=== PATIENT | female | born 1980 | race Two or more races ===

== ENCOUNTER 2018-09-14 16:12 | Emergency (ER) | payer MEDICAID ==
[~2018-09-14] VITALS: Ht 149.9 cm; Wt 87.1 kg
[2018-09-14 17:32] LABS: Urine Bacteria FEW /hpf (None Seen); Urine Blood 1+ /uL (Negative); Urine Mucus FEW (None Seen); Urine Specific Gravity 1.018 (1.001-1.035); Urine WBC 36 /hpf (0 - 5)
[2018-09-14 17:58] LABS: Basophils # (auto) 0 uL; Basophils % (auto) 0.1 % (0.0-2.0); Eosinophils # (auto) 0 uL; Hematocrit 40.8 % (36.0-46.0); Hemoglobin 13.9 g/dL (12.2-16.2); Lymphocytes % (auto) 10.8 % (10.0-50.0); Mean Corpuscular Hemoglobin 30.9 pg (28.0-32.0); Mean Corpuscular Hgb Conc. 34.1 g/dL (32.0-36.0); Mean Corpuscular Volume 90.7 fL (80.0-100.0); Monocytes # (auto) 0.5 uL; Monocytes % (auto) 5.8 % (0.0-12.0); Neutrophils # (auto) 7.7 uL; Neutrophils % (auto) 83.3 % (37.0-80.0); Platelet Count (auto) 242 10^3/uL (140-450); Red Blood Cells 4.51 10^6/uL (4.0-5.20); Red Cell Distribution Width 13.7 % (11.8-14.3); White Blood Cell 9.3 10^3/uL (4.4-10.8)
[2018-09-14 18:13] LABS: Albumin 3.6 g/dL (3.4-5.0); Potassium 3.8 mmol/L (3.5-5.1)
[2018-09-14 18:18] LABS: BUN/Creatinine Ratio 10.9; Bilirubin, Total 0.6 mg/dL (0.2-1.0); Total Protein 8.5 g/dL (6.4-8.2)
[2018-09-14] MEDS ORDERED: IBUPROFEN 600 MG TAB PO ONE (19:00)
[2018-09-14] MEDS ORDERED: SODIUM CHLORIDE 0.9% 1,000 ML IV ONE (19:45)
[2018-09-14] MEDS ORDERED: cefTRIAXone 1GM/50ML D5W 50 ML IV ONE (19:45)
[2018-09-14 21:27] VITALS: BP 119/81
== END 2018-09-14 23:25 | disposition home or self-care (01) ==
LOC: ER 16:21
DX: N39.0 Urinary tract infection, site not specified (principal); Z88.8 Allergy status to other drugs, medicaments and biological substances
CPT/HCPCS: 36415; 80053; 81001; 85025; 94761; 96365; 99283; J0696; J7030

== ENCOUNTER 2019-05-19 15:18 | Emergency (ER) | payer MEDICAID ==
[~2019-05-19] VITALS: Ht 149.9 cm; Wt 89.4 kg
[2019-05-19 15:40] VITALS: BP 128/86
[2019-05-19 16:31] LABS: Urine Bacteria NONE SEEN /hpf (None Seen); Urine Blood 2+ /uL (Negative); Urine WBC 33 /hpf (0 - 5)
[2019-05-19] MEDS ORDERED: PHENAZOPYRIDINE HCL 100 MG TAB PO ONE (17:30)
[2019-05-19] MEDS ORDERED: cefTRIAXone SOD 1,000 MG VL IM ONE (17:30)
== END 2019-05-19 17:54 | disposition home or self-care (01) ==
LOC: ER 15:18
DX: N39.0 Urinary tract infection, site not specified (principal); Z88.1 Allergy status to other antibiotic agents
CPT/HCPCS: 81001; 96372; 99283; J0696

== ENCOUNTER 2021-06-12 15:50 | Emergency (ER) | payer MEDICAID ==
[~2021-06-12] VITALS: Ht 149.9 cm; Wt 86.2 kg
[2021-06-12 15:50] VITALS: BP 122/81
[2021-06-12] MEDS ORDERED: ADENOSINE 6 MG/2 ML INJ IV ONE (15:54)
[2021-06-12] MEDS: KETOROLAC TROMETH 60MG/2ML VIAL IM ONE (17:58)
[2021-06-12] MEDS: cefTRIAXone SOD 1,000 MG VL IM ONE (17:59)
== END 2021-06-12 18:25 | disposition home or self-care (01) ==
LOC: ER 15:50
DX: N39.0 Urinary tract infection, site not specified (principal); Z87.442 Personal history of urinary calculi; Z88.8 Allergy status to other drugs, medicaments and biological substances
CPT/HCPCS: 81002; 96372; 99284; J0696; J1885; J0153